=== PATIENT | male | born 1990 | race Two or more races ===

== ENCOUNTER 2022-02-24 08:44 | Emergency (ER) | payer OTHER ==
[~2022-02-24] VITALS: Ht 170.2 cm; Wt 81.6 kg
--- NOTE | 2022-02-24 09:02 | NUR ---
biblapd, clearance for booking, bump on the forehead,patient denies any altercation, denies pain. On room air, breathing evenly and unlabored. kept comfortable, will continue to monitor accordingly.
[2022-02-24 10:49] VITALS: BP 112/70
== END 2022-02-24 10:50 ==
LOC: ER 08:53
DX: S00.03XA Contusion of scalp, initial encounter (principal); S09.90XA Unspecified injury of head, initial encounter; Y08.89XA Assault by other specified means, initial encounter; Y93.89 Activity, other specified; Y92.89 Other specified places as the place of occurrence of the external cause; Y99.8 Other external cause status
CPT/HCPCS: 70450-TC